=== PATIENT | female | born 1980 | race Caucasian/White ===

== ENCOUNTER 2020-11-13 14:03 | Emergency (ER) | payer OTHER, SELFPAY ==
[2020-11-13 14:09] VITALS: BP 123/73; PULSE 50; RESP 12; TEMP 37.1; O2SAT 100
--- NOTE | 2020-11-13 14:16 | ED.SKABFB ---
HPI - Skin/Abscess/Foreign Bdy General Chief complaint: Skin/Abscess/Foreign Body Stated complaint: rash Time Seen by Provider: 11/13/20 14:17 Source: patient and RN notes reviewed Mode of arrival: ambulatory Limitations: no limitations History of Present Illness HPI narrative: 39-year-old female who presents to express care with complaints of 1 week duration of rash which has spread to the sides of her neck and on her chin which is itchy and cameron. Patient states that her rash started on her hands dorsal aspect and has improved but now is on bilateral sides of her neck and a spot on her chin which is itchy also. No exudates noted, area is red raised with no vesicles or pustules noted. Patient states no new food, lotions, mediations, soaps or laundry detergents no history os eczema but does have very sensitive skin. MD complaint: rash Onset (ago): week(s) (1) Tetanus up to date: yes Location: face (chin), neck, L hand and R hand Severity: moderate Severity scale (1-10): 4 Quality: burning and pruritic Pain Consistency: intermittent Exacerbating factors: none Context: none Associated symptoms: itching Treatments prior to arrival: other (essential oil) Related Data Allergies Allergy/AdvReac Type Severity Reaction Status Date / Time prochlorperazine Allergy Muscle Verified 11/13/20 14:17 [From Compazine] Spasms Review of Systems Review of Systems: Narrative: CONSTITUTIONAL: Denies fever, chills, or sweats. EYES: Denies visual changes, redness, or discharge. ENT: Denies rhinorrhea, congestion, sore throat, or otalgia. CARDIOVASCULAR: Denies chest pain, palpitations, or edema. RESPIRATORY: Denies cough or dyspnea. GASTROINTESTINAL: Denies abdominal pain, nausea, vomiting, or diarrhea. GENITOURINARY: Denies dysuria or hematuria. SKIN: Positive rash to bilateral hands and both sides of neck with itching MUSCULOSKELETAL: Denies back pain, joint pain, or myalgia. NEUROLOGIC: Denies headache, numbness, or weakness. PSYCHIATRIC: Denies anxiety or depression. All systems reviewed & are unremarkable except as noted in HPI and below PMFSH Surgical History Surgical History (Updated 11/13/20 @ 14:18 by Brooklynn Li NP) H/O knee surgery Previous section X3 Social History Social History (Updated 11/13/20 @ 14:18 by Brooklynn Li NP) Smoking status: Never smoker Alcohol intake: current Substance use: never Living arrangements: with family Gender identity (if verbalized by the patient): Female Comments At time of signature, agree with nursing past medical, surgical, social history. There is no relevant family history pertinent to the presenting complaint Exam Narrative: Exam Narrative: GENERAL: Well-appearing, well-nourished, and in no acute distress. HEAD: Normocephalic, atraumatic. EYES: PERRLA and EOMI. ENT: Nares clear, no rhinorrhea or epistaxis. Mucous membranes moist.TM's normal with good light reflex, no throat redness or swelling, no lesions or exudates. NECK: Supple.no lymphadenopathy CHEST: Clear to auscultation. No respiratory distress.SAO2 100% on room air. HEART: Regular rate and rhythm. No murmur heard. Normal peripheral pulses. ABDOMEN: Soft, nontender, nondistended, normal active bowel sounds. EXTREMITIES: Normal range of motion. No edema. SKIN: Warm, dry, red raised pruritic rash on dorsal aspect bilateral hands , bilateral sides of neck and on chin, no pustules or vesicles noted are itchy. NEURO: No focal deficits. Alert and oriented x3. Course Vital Signs Vital signs: Vital Signs Temperature 37.1 C 11/13/20 14:09 Pulse Rate 50 L 11/13/20 14:09 Respiratory Rate 12 11/13/20 14:09 Blood Pressure 123/73 11/13/20 14:09 Pulse Oximetry 100 11/13/20 14:09 Temperature 37.1 C 11/13/20 14:09 Pulse Rate 50 L 11/13/20 14:09 Respiratory Rate 12 11/13/20 14:09 Blood Pressure 123/73 11/13/20 14:09 Pulse Oximetry 100 11/13/20 14:09 MDM - Skin/Absces
== END 2020-11-13 14:46 | disposition home or self-care (01) ==
PROVIDERS: Emergency Provider Registered Nurse
DX: L25.9 Unspecified contact dermatitis, unspecified cause (principal)
CPT/HCPCS: 99213; G0463

== ENCOUNTER → 2021-11-27 14:44 | Outpatient (CLI) | payer OTHER, SELFPAY ==
--- NOTE | ~2021-11-27 | MM_ITS ---
EXAMINATION: MM screening karlo BI w fer HISTORY: Screening mammogram TECHNIQUE: Craniocaudal and mediolateral oblique 3-D tomosynthesis images were obtained and synthetic 2-D images were generated. CAD analysis was submitted and interpreted. COMPARISON: None, baseline BREAST PARENCHYMAL COMPOSITION: The breasts are extremely dense, which lowers the sensitivity of mamm ography. FINDINGS: There is no evidence of suspicious mass, calcification, or architectural distortion to sugg est malignancy in either breast. IMPRESSION: 1. No mammographic evidence of malignancy. 2. Recommend routine screening mammography in one year. BI-RADS Category 1: Negative Reviewed, dictated and finalized at location A. RAGUS BUNCHER
== END ==
PROVIDERS: Visit Provider Student in an Organized Health Care Education/Training Program
DX: Z12.31 Encounter for screening mammogram for malignant neoplasm of breast (principal)
CPT/HCPCS: 77063; 77067

== ENCOUNTER 2022-02-21 10:12 | Emergency (ER) | payer OTHER, SELFPAY ==
[2022-02-21 10:42] VITALS: BP 113/57; PULSE 62; RESP 18; TEMP 37.2; O2SAT 100
--- NOTE | 2022-02-21 11:04 | ED.URI ---
HPI - URI/Sore Throat General Chief Complaint: Upper Respiratory Infection Stated Complaint: cold symptoms Time Seen by Provider: 02/21/22 10:50 Source: patient Mode of arrival: ambulatory Limitations: no limitations History of Present Illness HPI Narrative: Ms. Rose is a 41-year-old female patient presenting to the clinic today with complaints of sinus pressure, runny nose, nasal congestion, and itchy/purulent drainage coming from eyes. She reports that the sinus pressure runny nose and nasal congestion has been going on for approximately 11 days. Has had 2 days worth of drainage coming from the eyes. Denies any fever or chills with this but does have a lot of postnasal drip. MD elicited complaint: cough, sore throat, rhinorrhea, nasal congestion and sinus pain Related Data Allergies Allergy/AdvReac Type Severity Reaction Status Date / Time prochlorperazine Allergy Muscle Verified 11/13/20 14:17 [From Compazine] Spasms Review of Systems Review of Systems: Pertinent positives per HPI. Patient denies any fever, chills, rash, headache, visual changes, dizziness, shortness of breath, chest pain, palpitations, nausea, vomiting, diarrhea, constipation, abdominal pain, or any urinary issues. PMFSH Surgical History Surgical History H/O knee surgery Previous section X3 Social History Social History Smoking status: Never smoker Alcohol intake: current Substance use: never Gender identity (if verbalized by the patient): Female Comments At the time of my signature, I reviewed and agree with the nursing past medical, surgical, social, and family history. There is no relevant family history pertinent to the patient complaint. Exam Narrative: General: Well-developed, well nourished, in no apparent distress Head: Normocephalic, atraumatic Eyes: Pupils equally round and reactive to light bilaterally, EOM intact, sclera and conjunctive injected and red, green mucopurulent discharge to the inner canthus bilaterally, bilateral eyelid swelling Ears: TMs intact and clear, ear canals clear, no drainage, grossly hearing normal. Nose: Nares patent, clear nasal discharge, moderate to severe inflammation to anterior and posterior turbinates right greater than left, maxillary and frontal sinus tenderness. Mouth: Oral pharynx without lesions or masses, good dentition, MMM. Neck: Supple, trachea midline, no enlargement of anterior or posterior cervical nodes, no thyroid masses or goiter palpable. Cardio: Regular rate and rhythm, s1 and s2 normal, no murmur appreciated. Resp: Clear to auscultation bilaterally, no rhonchi, rales, wheezing or rubs Course Course Emergency Course: Portions of this record may have been created with voice recognition software. Level of Care: Express Care Visit Vital Signs Vital signs: Vital Signs Temperature 37.2 C 02/21/22 10:42 Pulse Rate 62 02/21/22 10:42 Respiratory Rate 18 02/21/22 10:42 Blood Pressure 113/57 L 02/21/22 10:42 Pulse Oximetry 100 02/21/22 10:42 Temperature 37.2 C 02/21/22 10:42 Pulse Rate 62 02/21/22 10:42 Respiratory Rate 18 02/21/22 10:42 Blood Pressure 113/57 L 02/21/22 10:42 Pulse Oximetry 100 02/21/22 10:42 Vital signs reviewed MDM - URI/Sore Throat Differential Diagnosis Differential diagnosis: Likely upper respiratory infection, croup, sinusitis, viral infection, bronchitis, influenza, pharyngitis and other (Bacterial conjunctivitis, viral conjunctivitis, allergic conjunctivitis) Discharge Plan Discharge Clinical Impression: Acute bacterial rhinosinusitis Acute conjunctivitis, bilateral Qualifiers: Acute conjunctivitis type: bacterial Qualified Code(s): H10.33 - Unspecified acute conjunctivitis, bilateral Patient Disposition: Home, Self-Care Condition: Stable Instructions: Antibiotic
== END 2022-02-21 11:12 | disposition home or self-care (01) ==
PROVIDERS: Emergency Provider Nurse Practitioner Family
DX: J01.90 Acute sinusitis, unspecified (principal); H10.33 Unspecified acute conjunctivitis, bilateral
CPT/HCPCS: 99213; G0463

== ENCOUNTER 2022-11-03 10:33 | Emergency (ER) | payer OTHER, SELFPAY ==
[2022-11-03 10:38] VITALS: BP 122/69; PULSE 106; RESP 18; TEMP 36.3; O2SAT 98
[2022-11-03 10:43] VITALS: BP 113/75; PULSE 87; RESP 16; TEMP 36.8; O2SAT 98
--- NOTE | 2022-11-03 20:11 | ED.GENADULT ---
HPI - General Adult General Chief complaint: Upper Respiratory Infection Stated complaint: Headache,Congestion,Cough History of Present Illness HPI narrative: 41 y/o female. PMHx Non-contributory. [place] [facility] [place] [facility] [place] with acute complaints of THOMAS, Nasal congestion, cough, and fever. Manifestations present for the past > 1 week. No dizziness, focal weakness. No neck pain or stiffness. Denies chest pain, palpitations, hemoptysis. Mild and intermittent dyspnea. Denies GI upset, N/V/D. Related Data Allergies Allergy/AdvReac Type Severity Reaction Status Date / Time prochlorperazine AdvReac Mild Muscle Verified 11/03/22 10:42 [From Compazine] Spasms Review of Systems Review of Systems: All systems reviewed & are unremarkable except as noted in HPI and below: Constitutional: THOMAS. HENT: Congestion. RESP: Cough. PMFSH Surgical History Surgical History H/O knee surgery Previous section X3 Social History Social History Smoking status: Never smoker Alcohol intake: current Substance use: never Gender identity (if verbalized by the patient): Female Exam Narrative: GENERAL: Well-appearing, well-nourished, and in no acute distress. HEAD: Normocephalic, atraumatic. EYES: PERRLA, conjunctivae clear. ENT: Mucous membranes moist. Positive PND. Pharyngeal erythema, without swelling or exudative changes, Uvula midline. Palate soft. NECK: Supple. No lymphadenopathy. No meningeal signs. CHEST: Clear to auscultation. No respiratory distress. HEART: Regular rate and rhythm. SKIN: Warm, dry, intact NEURO:? Alert and oriented x3. PSYCH: Normal mood and affect Course Course Level of Care: Express Care Visit Vital Signs Vital signs: Vital Signs Temperature 36.3 C L 11/03/22 10:38 Pulse Rate 106 H 11/03/22 10:38 Respiratory Rate 18 11/03/22 10:38 Blood Pressure 122/69 11/03/22 10:38 Pulse Oximetry 98 11/03/22 10:38 Oxygen Delivery Room Air 11/03/22 10:38 Temperature 36.8 C 11/03/22 10:43 Pulse Rate 87 11/03/22 10:43 Respiratory Rate 16 11/03/22 10:43 Blood Pressure 113/75 11/03/22 10:43 Pulse Oximetry 98 11/03/22 10:43 Oxygen Delivery Room Air 11/03/22 10:43 Medical Decision Making Differential Diagnosis Differential Diagnosis: Differential Diagnosis: Consideration of the following conditions may be warranted for the presenting problem, they are not final diagnoses: upper respiratory infection, otitis media, sinusitis, RSV viral infection, PNA, bronchitis, pharyngitis, Streptococcal sore throat, COVID-19, and other. Vital Signs Vital Signs: Vital Signs Temperature 36.3 C L 11/03/22 10:38 Pulse Rate 106 H 11/03/22 10:38 Respiratory Rate 18 11/03/22 10:38 Blood Pressure 122/69 11/03/22 10:38 Pulse Oximetry 98 11/03/22 10:38 Oxygen Delivery Room Air 11/03/22 10:38 Temperature 36.8 C 11/03/22 10:43 Pulse Rate 87 11/03/22 10:43 Respiratory Rate 16 11/03/22 10:43 Blood Pressure 113/75 11/03/22 10:43 Pulse Oximetry 98 11/03/22 10:43 Oxygen Delivery Room Air 11/03/22 10:43 Discharge Plan Discharge Clinical Impression: Upper respiratory infection, Bronchitis Patient Disposition: Home, Self-Care Condition: Stable Instructions: Antibiotic Form, Upper Respiratory Infection (DC) Prescriptions: New azithromycin 250 mg tablet See Rx Instructions .ROUTE .COMPLEX Qty: 6 0RF Rx Instructions: For 250 mg dose pack: take 500 mg today (day 1), then 250 mg for 4 days (days 2-5) methylprednisolone [Medrol (Earnest)] 4 mg tablets,dose pack See Rx Instructions .ROUTE .COMPLEX Qty: 21 0RF Rx Instructions: orally per package directions albuterol sulfate 90 mcg/actuation HFA aerosol inhaler 2 puff inhalation QID PRN (Reason: shortness of breath or
== END 2022-11-03 11:10 | disposition home or self-care (01) ==
PROVIDERS: Emergency Provider Nurse Practitioner Adult Health
DX: J06.9 Acute upper respiratory infection, unspecified (principal); J40 Bronchitis, not specified as acute or chronic
CPT/HCPCS: 99213; G0463

== ENCOUNTER → 2023-01-28 10:56 | Outpatient (CLI) | payer BC, SELFPAY ==
--- NOTE | ~2023-01-28 | MM_ITS ---
EXAMINATION: MM screening karlo BI w fer HISTORY: Screening mammogram TECHNIQUE: Craniocaudal and mediolateral oblique 3-D tomosynthesis images were obtained and synthetic 2-D images were generated. CAD analysis was submitted and interpreted. COMPARISON: 11/27/2021 BREAST PARENCHYMAL COMPOSITION: The breasts are extremely dense, which lowers the sensitivity of mamm ography. FINDINGS: RIGHT BREAST: No suspicious mass, calcification, or architectural distortion are identified to sugges t malignancy. There has been no suspicious interval change. LEFT BREAST: There is a possible mass in the middle third of the inner breast. IMPRESSION: 1. Possible left breast mass. 2. Additional mammographic views and possible breast ultrasound are recommended. BI-RADS Category 0: Incomplete: Needs additional imaging evaluation. Reviewed, dictated and finalized at location A. NS PICKER IMPRESSION: 1. Possible left breast mass. 2. Additional mammographic views and possible breast ultrasound are recommended . BI-RADS Category 0: Incomplete: Needs additional imaging evaluation.
== END ==
PROVIDERS: PCP Obstetrics & Gynecology; Visit Provider Obstetrics & Gynecology
DX: Z12.31 Encounter for screening mammogram for malignant neoplasm of breast (principal); R92.8 Other abnormal and inconclusive findings on diagnostic imaging of breast
CPT/HCPCS: 77063; 77067

== ENCOUNTER → 2023-02-26 08:03 | Outpatient (CLI) | payer BC, SELFPAY ==
--- NOTE | ~2023-02-26 | MMUS_ITS ---
EXAMINATION: MM diagnostic karlo LT w fer, US breast LT complete HISTORY: Follow-up left breast asymmetry TECHNIQUE: Additional 3-D tomosynthesis images of the left breast were performed and synthetic 2-D im ages were generated. CAD analysis was submitted and interpreted. High resolution complete left breast ultrasound was performed. COMPARISON: Comparison to multiple prior studies sequentially, with oldest reviewed study dated 03/2022. BREAST PARENCHYMAL COMPOSITION: BREAST PARENCHYMAL COMPOSITION: The breasts are heterogeneously dense, which may obscure small masses . FINDINGS: MAMMOGRAPHIC FINDINGS: Persistent focal asymmetries in the lower inner quadrant of the left breast. No discrete masses or ar chitectural distortion. No suspicious calcifications. ULTRASOUND: Complete US of all 4 quadrants of the left breast and retroareolar region was reviewed. At 1:00, 1 cm from the nipple, there is a 3 mm intramammary lymph node. At 2:00, 2 cm from the nipple, there is an oval hypoechoic 4 mm mass with parallel orientation, no posterior features and no internal vasculari ty. At 7:00, 3 cm from the nipple, there is an oval hypoechoic mass with parallel orientation, no pos terior features or internal vascularity, measuring 6 mm. At 10:00, 1 cm from the nipple there is a 6 mm cyst. IMPRESSION: 1. Probable benign left breast masses. 2. Recommend 6 month follow-up diagnostic left mammogram and ultrasound. BI-RADS category 3, probably benign findings. Reviewed, dictated and finalized at location A. IMPRESSION: 1. Probable benign left breast masses. 2. Recommend 6 month follow-up diagnostic left mammogram and ultrasound. BI-RADS category 3, probably benign findings.
== END ==
PROVIDERS: PCP Obstetrics & Gynecology; Visit Provider Obstetrics & Gynecology
DX: R92.8 Other abnormal and inconclusive findings on diagnostic imaging of breast (principal)
CPT/HCPCS: 76641; 77061; 77065; G0279

== ENCOUNTER → 2023-11-11 09:19 | Outpatient (CLI) | payer BC, SELFPAY ==
--- NOTE | ~2023-11-11 | MMUS_ITS ---
EXAMINATION: MM diagnostic karlo LT w fer, US breast LT complete HISTORY: Six-month follow-up of probable benign left breast masses TECHNIQUE: Full field and spot 3-D tomosynthesis images of the left breast were performed and synthet ic 2-D images were generated. CAD analysis was submitted and interpreted. High resolution complete le ft breast ultrasound examination including all 4 quadrants and subareolar area was performed. COMPARISON: February 26, 2023 diagnostic left mammogram and complete left breast ultrasound 01/28/2023, 11/27/2022 bilateral screening mammogram examinations BREAST PARENCHYMAL COMPOSITION: The breasts are extremely dense, which lowers the sensitivity of mamm ography. FINDINGS: MAMMOGRAPHIC FINDINGS: No suspicious mass or architectural distortion, malignant calcification, skin thickening or retractio n or significant new or developing density is detected. ULTRASOUND: There are scattered circumscribed hypoechoic and sonolucent lesions measuring 1 cm or smaller, withou t internal vascularity or suspicious shadowing, at 1:00 4 cm from nipple, 2:00 4 cm from nipple, 8:00 4 cm from nipple, 9:00 4 cm from nipple and at 10:00 3 cm and 2 cm from nipple. No suspicious mass or shadowing is detected. IMPRESSION: 1. Benign findings 2. Routine annual mammographic screening is recommended BI-RADS Category 2: Benign finding(s). Reviewed, dictated and finalized at location A. N GARDENING SPECIALIST IMPRESSION: 1. Benign findings 2. Routine annual mammographic screening is recommended BI-RADS Category 2: Benign finding(s).
== END ==
PROVIDERS: PCP Obstetrics & Gynecology; Visit Provider Obstetrics & Gynecology
DX: R92.8 Other abnormal and inconclusive findings on diagnostic imaging of breast (principal)
CPT/HCPCS: 76641; 77061; 77065; G0279

== ENCOUNTER 2025-01-11 15:03 | Outpatient (CLI) | payer BC, SELFPAY ==
--- NOTE | ~2025-01-11 | MM_ITS ---
EXAMINATION: MM screening karlo BI w fer HISTORY: Screening TECHNIQUE: Craniocaudal and mediolateral oblique 3-D tomosynthesis images were obtained and synthetic 2-D images were generated. CAD analysis was submitted and interpreted. COMPARISON: Comparison to multiple prior studies sequentially, with oldest reviewed study dated 03/2022. BREAST PARENCHYMAL COMPOSITION: Dense: The breasts are heterogeneously dense, which may obscure small masses FINDINGS: There is asymmetry medial aspect of the left breast with possible architectural distortion with CC view. This is not well visualized on MLO view. There is developing focal asymmetry laterally in the right breast on CC view. IMPRESSION: 1. Developing breast asymmetries. 2. Additional mammographic views and possible breast ultrasound are recommended. BI-RADS Category 0: Incomplete: Needs additional imaging evaluation. Reviewed, dictated and finalized at location B. ENT PROCESSOR IMPRESSION: 1. Developing breast asymmetries. 2. Additional mammographic views and possible breast ultrasound are recommended . BI-RADS Category 0: Incomplete: Needs additional imaging evaluation.
== END 2025-01-11 15:04 | disposition home or self-care (01) ==
LOC: MICIMG 15:04
PROVIDERS: PCP Obstetrics & Gynecology; Visit Provider Obstetrics & Gynecology
DX: Z12.31 Encounter for screening mammogram for malignant neoplasm of breast (principal); R92.8 Other abnormal and inconclusive findings on diagnostic imaging of breast
CPT/HCPCS: 77063; 77067

== ENCOUNTER 2025-02-10 08:30 | Outpatient (CLI) | payer BC, SELFPAY ==
--- NOTE | ~2025-02-10 | MMUS_ITS ---
EXAMINATION: MM diagnostic karlo BI w fer, US breast BI complete HISTORY: Follow-up breast asymmetries. TECHNIQUE: Additional 3-D tomosynthesis images of the breasts were performed and synthetic 2-D images were generated. CAD analysis was submitted and interpreted. High resolution bilateral complete breas t ultrasound was performed. COMPARISON: Comparison to multiple prior studies sequentially, with oldest reviewed study dated 03/2022. BREAST PARENCHYMAL COMPOSITION: Dense: The breasts are heterogeneously dense, which may obscure small masses FINDINGS: MAMMOGRAPHIC FINDINGS: There are no suspicious masses, calcifications or architectural distortion in either breast to sugges t malignancy. Breast asymmetries compress with spot views. ULTRASOUND: Complete US of all 4 quadrants of the breast/s and retroareolar region was reviewed. Right breast: Normal heterogeneous echotexture without focal solid or cystic mass. Left breast: At 2:00, 4 cm from the nipple there is an oval hypoechoic mass with parallel orientation , low level internal echoes, subtle posterior acoustic and enhancement and no internal vascularity, l ikely benign. At 8:00 near the nipple there is a 4 mm cyst. IMPRESSION: 1. Probable benign left breast mass at 2:00, 4 cm from the nipple measuring 4 mm. 2. Recommend 6 month follow-up Limited left breast ultrasound recommended. BI-RADS category 3, probably benign findings. Reviewed, dictated and finalized at location B. IMPRESSION: 1. Probable benign left breast mass at 2:00, 4 cm from the nipple measuring 4 m m. 2. Recommend 6 month follow-up Limited left breast ultrasound recommended. BI-RADS category 3, probably benign findings.
== END 2025-02-10 08:31 | disposition home or self-care (01) ==
LOC: MICIMG 08:31
PROVIDERS: PCP Obstetrics & Gynecology; Visit Provider Obstetrics & Gynecology
DX: R92.8 Other abnormal and inconclusive findings on diagnostic imaging of breast (principal)
CPT/HCPCS: 76641; 77062; 77066; G0279

== ENCOUNTER 2025-10-05 08:14 | Outpatient (CLI) | payer BC, SELFPAY ==
--- NOTE | ~2025-10-05 | US_ITS ---
US breast LT limited 10/05/2025 08:41 Indication: Follow-up probable benign left breast mass seen on prior study. Procedure: High-resolution Limited ultrasound of the left breast Comparison: Ultrasound dated 02/10/2025 Findings: At 2:00, 4 cm from the nipple there is a 4 mm simple cyst. No suspicious masses to suggest malignancy. Impression: 1: No sonographic evidence for malignancy in the left breast. BI-RADS CATEGORY 2 - BENIGN FINDINGS Routine yearly screening mammogram and regular clinical breast examination are recommended. Reviewed, dictated and finalized at location C. STAT ASSEMBLER Impression: 1: No sonographic evidence for malignancy in the left breast. BI-RADS CATEGORY 2 - BENIGN FINDINGS Routine yearly screening mammogram and regular clinical breast examination are recommended.
== END 2025-10-05 08:15 | disposition home or self-care (01) ==
LOC: MICIMG 08:15
PROVIDERS: PCP Obstetrics & Gynecology; Visit Provider Obstetrics & Gynecology
DX: R92.8 Other abnormal and inconclusive findings on diagnostic imaging of breast (principal)
CPT/HCPCS: 76642